=== PATIENT | male | born 1950 | race Two or more races ===

== ENCOUNTER 2018-05-26 20:55 | Emergency (ER) | payer OTHER ==
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
[2018-05-26 21:19] VITALS: TEMP 98.4; BMI 25.9
[2018-05-26] MEDS ORDERED: ACETAMINOPHEN 500 MG TABLET (FP) PO ONE (21:55)
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
[2018-05-26] MEDS ORDERED: ACETAMINOPHEN 325 MG TABLET (FP) ONE (22:00)
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
[2018-05-26] MEDS ORDERED: KETOROLAC TROMETHAMINE 10 MG TABLET PO ONE (23:47)
[2018-05-27 01:32] VITALS: BP 168/112; PULSE 76
== END 2018-05-27 02:07 | disposition home or self-care (01) ==
LOC: JER 20:55
DX: M54.2 Cervicalgia (principal); M25.512 Pain in left shoulder; M25.562 Pain in left knee; M25.522 Pain in left elbow; V03.90XA Pedestrian on foot injured in collision with car, pick-up truck or van, unspecified whether traffic or nontraffic accident, initial encounter; Y92.414 Local residential or business street as the place of occurrence of the external cause; Y93.89 Activity, other specified; Y99.8 Other external cause status
CPT/HCPCS: 72125-TC; 73030-TC-LT-FY; 73070-TC-LT-FY; 73200-TC-RT; 73562-TC-LT-FY; 99282-25

== ENCOUNTER 2020-08-15 04:49 | Day surgery (SDC) | payer OTHER ==
[2020-08-10 14:42] VITALS: BMI 25.2
[2020-08-15 09:37] VITALS: BP 126/80; PULSE 64; TEMP 98
== END 2020-08-15 09:47 | disposition home or self-care (01) ==
LOC: JASU-ENDO 04:49
PROVIDERS: ATTEND Internal Medicine Gastroenterology
PROC: 0DJD8ZZ Inspection of Lower Intestinal Tract, Via Natural or Artificial Opening Endoscopic (ICD-10-PCS; principal; 2020-08-15 08:00)
DX: Z12.11 Encounter for screening for malignant neoplasm of colon (principal); K57.30 Diverticulosis of large intestine without perforation or abscess without bleeding; K64.4 Residual hemorrhoidal skin tags; N40.0 Benign prostatic hyperplasia without lower urinary tract symptoms

== ENCOUNTER 2022-10-08 09:31 | Emergency (ER) | payer OTHER ==
[2022-10-08 10:06] VITALS: BP 160/94; PULSE 88; RESP 18; TEMP 97.3; BMI 25.9
[2022-10-08] MEDS ORDERED: IBUPROFEN 600 MG TABLET (FP) PO ONE ×2 (10:08→10:14)
== END 2022-10-08 11:50 | disposition home or self-care (01) ==
LOC: JER 09:31
DX: S69.91XA Unspecified injury of right wrist, hand and finger(s), initial encounter (principal); M79.644 Pain in right finger(s); W23.2XXA Caught, crushed, jammed or pinched between a moving and stationary object, initial encounter
CPT/HCPCS: 73130-TC-RT-FY; 73140-TC-RT-FY; 99284-25